=== PATIENT | female | born 1935 | race Caucasian/White ===

== ENCOUNTER 2016-05-07 08:15 | Outpatient (CLI) | payer MEDICARE, OTHER ==
[2016-05-07 12:27] LABS: #Basophils 0.1 thou/uL (0.0-0.2); #Eosinphils 0.6 thou/uL (0.0-0.7); #Lymphocytes 2.9 thou/uL (1.20-3.40); #Monocytes 0.8 thou/uL (0.11-0.59); #Neutrophils 6.1 thou/uL (1.40-6.50); %Basophils 0.8 % (0.0-1.0); %Lymphocytes 27.8 % (21.0-51.0); %Monocytes 7.4 % (0.0-10.0); Hematocrit 38.9 % (36.0-47.0); Mean Platelet Volume 5.4 fL (7.4-10.4); Red Blood Cell (RBC) Count 4.51 mill/uL (4.20-5.40); White Blood Cell (WBC) Count 10.5 thou/uL (4.8-10.8)
[2016-05-07 12:38] LABS: ALT (SGPT) 16 U/L (0-55); AST (SGOT) 24 U/L (5-34); Alkaline Phosphatase 63 U/L (40-150); Anion Gap 15 mmol/L (10-20); BUN (Urea Nitrogen) 8 mg/dL (9.8-20.1); Bilirubin, Direct 0.3 mg/dL (0.1-0.3); Bilirubin, Total 0.7 mg/dL (0.2-1.2); Calc. Creatinine Clearance 0 mL/min (70-130); Calcium 9.6 mg/dL (7.8-10.44); Carbon Dioxide 23 mmol/L (23-31); Chloride 105 mmol/L (98-107); Estimated GFR-MDRD 56; LDL Cholesterol, Calculated 111 mg/dL; Protein, Total 7.9 g/dL (5.8-8.1)
[2016-05-07 12:41] LABS: Hemoglobin A1c 5.8 % (4.0-6.0)
== END 2016-05-07 08:16 ==
LOC: NAVSJIPCSP 08:15
PROVIDERS: ATTEND Family Medicine
DX: E11.9 Type 2 diabetes mellitus without complications (principal); I10 Essential (primary) hypertension
CPT/HCPCS: 36415; 80048; 80061; 80076; 83036; 84443; 85025

== ENCOUNTER 2016-09-08 08:51 | Outpatient (CLI) | payer MEDICARE, OTHER ==
[2016-09-08 12:34] LABS: Blood, Urine Negative (Negative); Clarity Cloudy (Clear); Glucose, Urine (Dipstick) Negative (Negative); Leukocyte Small (Negative); Nitrite Negative (Negative); Protein, Urine (Dipstick) 30 mg/dL (Neg-Trace); pH, Urine 5.5 (5.0-9.0)
[2016-09-08 12:44] LABS: #Basophils 0.1 thou/uL (0.0-0.2); #Eosinphils 0.5 thou/uL (0.0-0.7); #Lymphocytes 2.6 thou/uL (1.20-3.40); #Monocytes 0.6 thou/uL (0.11-0.59); #Neutrophils 4.5 thou/uL (1.40-6.50); %Basophils 0.9 % (0.0-1.0); %Lymphocytes 31.1 % (21.0-51.0); %Monocytes 7.6 % (0.0-10.0); %Neutrophils 54.5 % (42.0-75.0); Hemoglobin 11.4 g/dL (12.0-16.0); Mean Corpuscular Hemoglobin 25.9 pg (27.0-31.0); Mean Corpuscular Volume 83.7 fl (81.0-99.0); Mean Platelet Volume 5.5 fL (7.4-10.4); Platelet Count 356 thou/uL (130-400); RBC Distribution Width 14.4 % (11.5-14.5); Red Blood Cell (RBC) Count 4.39 mill/uL (4.20-5.40); White Blood Cell (WBC) Count 8.2 thou/uL (4.8-10.8)
[2016-09-08 13:08] LABS: ALT (SGPT) 14 U/L (8-55); AST (SGOT) 21 U/L (5-34); Albumin 4.2 g/dL (3.4-4.8); Alkaline Phosphatase 50 U/L (40-150); Anion Gap 17 mmol/L (10-20); BUN (Urea Nitrogen) 12 mg/dL (9.8-20.1); Bilirubin, Direct 0.3 mg/dL (0.1-0.3); Bilirubin, Total 0.7 mg/dL (0.2-1.2); Calc. Creatinine Clearance 0 mL/min (70-130); Calcium 9.2 mg/dL (7.8-10.44); Carbon Dioxide 21 mmol/L (23-31); Cardiac Risk 2.9 (Less than 4.5); Chloride 107 mmol/L (98-107); Cholesterol 183 mg/dl (< 200 Desired); Estimated GFR-MDRD 57; Glucose 89 mg/dL (83-110); HDL Cholesterol 64 mg/dL (>60 Neg Risk); LDL Cholesterol, Calculated 92 mg/dL; Potassium 4.9 mmol/L (3.5-5.1); Protein, Total 7.2 g/dL (6.0-8.3); Sodium 140 mmol/L (136-145); Triglycerides 137 mg/dL (Less than 150)
[2016-09-08 13:38] LABS: Bilirubin Negative (Negative); Icto Negative (Negative); Specific Gravity, Urine 1.028 (1.002-1.036)
[2016-09-08 13:41] LABS: Bacteria/HPF Rare-Few HPF (None Seen); Other Microscopic Description NO; RBC/HPF None Seen HPF (0-3); Squamous Epithelial 0-3 HPF (0-3)
[2016-09-08 14:11] LABS: Hemoglobin A1c 5.8 % (4.0-6.0)
[2016-09-08 19:39] LABS: Creatinine, Urine Greater than 430.00 mg/dL (47-110); Microalbumin Urine 15.3 mg/dL (0.5-50.0)
== END 2016-09-08 08:52 ==
LOC: NAVSJIPCSP 08:51
PROVIDERS: ATTEND Family Medicine
DX: E78.5 Hyperlipidemia, unspecified (principal); E11.9 Type 2 diabetes mellitus without complications; I10 Essential (primary) hypertension; Z79.899 Other long term (current) drug therapy
CPT/HCPCS: 36415; 80048; 80061; 80076; 81003; 81015; 82043; 83036; 84443; 85025

== ENCOUNTER 2018-05-31 10:09 | Outpatient (CLI) | payer MEDICARE, OTHER ==
--- NOTE | 2018-05-31 12:37 | RAD ---
CERVICAL SPINE 1 VIEW: HISTORY: Neck pain and shoulder arthritis. COMPARISON: None. FINDINGS: Exam is severely limited due to only view. On this lateral radiograph only the level of C6 is apprec iated. There is near-complete degenerative disk space height loss from C3 to C6. There is likely os seous fusion of posterior elements of C2, C3, and C4. Evaluation for fracture is severely limited. IMPRESSION: Severely limited exam. Recommend consideration of a CT or MRI. Severe degenerative changes. POS: [facility]
--- NOTE | 2018-05-31 12:39 | RAD ---
THORACIC SPINE 3 VIEWS: HISTORY: Neck pain and shoulder arthritis. COMPARISON: None. FINDINGS: There is reverse S-shaped scoliosis thoracic spine. Dense calcified granuloma of the right mid lung. Heart size is markedly enlarged. Air fluid level in the middle mediastinum suggests a large sliding hiatal hernia. Heart size is markedly enlarged. Moderate edema. Small effusions. There is mid thoracic spine vertebral body height loss at multiple levels, likely at T7, T8, and T9 a nd possibly even at T11. IMPRESSION: 1. Multilevel vertebral body height loss thoracic spine. Consider MRI or CT for further evaluation. 2. Cardiomegaly, effusions, and moderate edema suggestive of congestive heart failure. 3. Large sliding hiatal hernia. POS: [facility]
== END 2018-05-31 10:10 | disposition home or self-care (01) ==
LOC: NAV RAD 10:09
PROVIDERS: ATTEND Family Medicine
DX: M54.2 Cervicalgia (principal); M19.019 Primary osteoarthritis, unspecified shoulder; I51.7 Cardiomegaly; J90 Pleural effusion, not elsewhere classified; R60.0 Localized edema; K44.9 Diaphragmatic hernia without obstruction or gangrene; M47.812 Spondylosis without myelopathy or radiculopathy, cervical region
CPT/HCPCS: 72020; 72072